=== PATIENT | female | born 1960 ===

== ENCOUNTER 2018-08-02 06:45 | Day surgery (SDC) | payer OTHER ==
[2018-08-01 13:20] VITALS: BMI 29.7
[~2018-08-02 06:45] MED LIST: HYDROmorphone 0.5 MG/0.5 ML SYRINGE IVP PRN; LACTATED RINGERS 1,000 ML IV SCH; MIDAZOLAM (PF) 2 MG/2 ML VIAL IV PRN; ONDANSETRON 4 MG/2 ML VIAL IVP ONE; Pre Op ABX Message 1 EACH MISC MISCELLANE ONE
[2018-08-02] MEDS ORDERED: DEXAMETHASONE SOD PHOSPHATE 10 MG/ML 1 ML VIAL IV ONE (07:09)
[2018-08-02] MEDS ORDERED: fentaNYL (PF) 50 MCG/ML 2 ML AMP IV ONE (07:13)
[2018-08-02] MEDS ORDERED: MIDAZOLAM (PF) 2 MG/2 ML VIAL IV ONE (07:13)
--- NOTE | 2018-08-02 07:28 | P.ONQ ---
Anesthesiology Proc Note - PNB - Peripheral Nerve Block Performed Right Interscalene Single Time Out Performed: Yes (0714) Procedure Start Time: 07:14 Procedure Stop Time: :18 Indication: Acute Post-Operative Pain, Dx/Pain Location (Right Shoulder Pain), Requested by physician Sedation Type: Sedate with meaningful contact maintained Preparation: Sterile Prep Position: Supine Catheter: None Needle Types: On-Q Needle Size: 50mm (2") Needle Gauge: 21 Technique: Ultrasound Injectate: Other (see comment) (15ml 0.5% Ropivacaine + 5ml 2% Lidocaine with 1:200,000 epi + 4mg Dexamethasone) Blood Aspirated: No Pain Paresthesia on Injection Noted: No Resistance on Injection: Normal Events: Uneventful and Well Tolerated
[2018-08-02] MEDS ORDERED: LIDOCAINE 1% INJ 10MG/ML (20 ML MDV) ONE (08:16)
[2018-08-02] MEDS ORDERED: MIDAZOLAM 2 MG/2 ML VIAL ONE (08:16)
[2018-08-02] MEDS ORDERED: fentaNYL (PF) 50 MCG/ML 2 ML AMP ONE (08:16)
[2018-08-02] MEDS ORDERED: DEXAMETHASONE SOD PHOS (MDV) 100 MG/10 ML VIAL ONE (08:16)
[2018-08-02] MEDS ORDERED: SUCCINYLCHOLINE CHLORIDE 100 MG/5 ML SYR IV ONE (08:16)
[2018-08-02] MEDS ORDERED: ceFAZolin 1,000 MG VIAL ONE (08:16)
[2018-08-02] MEDS ORDERED: PROPOFOL 10 MG/ML 20 ML VIAL IV ONE (08:16)
[2018-08-02] MEDS ORDERED: LIDOCAINE 2%-EPI 1:100,000 20 ML VIAL ONE (08:16)
[2018-08-02] MEDS ORDERED: PHENYLEPHRINE-0.9% NACL SYG 1 MG/10 ML SYRINGE ONE (08:16)
[2018-08-02] MEDS ORDERED: ROPIVACAINE 5 MG/ML 30 ML VIAL ONE (08:16)
[2018-08-02] MEDS ORDERED: EPINEPHrine 4 MG in SODIUM CHLORIDE 0.9% IRRIGATIO 3,000 ML IRRIGATION ONE ×8 (08:52)
[2018-08-02] MEDS ORDERED: LACTATED RINGERS 1,000 ML IV ONE (09:19)
--- NOTE | 2018-08-02 09:45 | P.OP ---
Date of Procedure: 08/02/18 Procedure(s) Performed: PREOPERATIVE DIAGNOSES: 1. Right shoulder rotator cuff tear. 2. Chronic impingement syndrome. 3. Acromioclavicular osteoarthritis. 4. Superior labral degenerative tear. POSTOPERATIVE DIAGNOSES: 1. Right shoulder rotator cuff tear (supraspinatus, 1 cm). 2. Chronic impingement syndrome. 3. Acromioclavicular osteoarthritis. 4. Labral degenerative tear, superior. 5. Adhesive capsulitis, mild. PROCEDURES PERFORMED: 1. Right shoulder arthroscopy with rotator cuff repair 2. Arthroscopic partial distal clavicle excision 3. Arthroscopic debridement superior labral tear 4. Arthroscopic subacromial decompression 5. Arthroscopic partial synovectomy 6. Arthroscopic lysis of adhesions with manipulation ANESTHESIA: General. ESTIMATED BLOOD LOSS: Less than 25 mL TOURNIQUET: None ASSISTANT MANAGER TRAINEE: Praveena Londono PA-C (Assistance with: patient positioning, camera operation, retraction, fixation, closure, dressing) COMPLICATIONS: None. DISPOSITION: To postanesthesia care unit INDICATIONS: Latia is a 57 year old female with a history of rotator cuff diff iculties. MRI was suspicious for a tear, and the patient wishes to have it repaired. I have examined the patient in the office and proposed rotator cuff repair via an arthroscopic or mini-open approach, as well as other procedures to optimize the shoulder and outcome, such as decompression of spurs and debridement of loose or degenerated tissue. I have explained the risks of this surgery as being inclusive of, but not limited to: bleeding, infection, scarring, discomfort, blood vessel and/or nerve damage, need for further surgery, stiffness, persistence or worsening of problems, , and other risks. The consent form has been completed and signed. PROCEDURE: Appropriate consent was obtained from the patient. The patient was taken to the operating room and placed in the supine position. General anesthesia was initiated and after confirmation of adequate anesthesia, the patients right shoulder was examined. Initial range of motion showed flexion to 120, abduction to 120, external rotation to 50 and internal rotation to 50. Gentle manipulation was performed using Codmans paradox maneuver such that range of motion was improved to 170 flexion, 170 abduction, 75 external rotation and 75 internal rotation. The shoulder was stable. Next, the patient was rotated into the lateral decubitus position and stabilized to the table with a caraballo bag and padded straps. Care was taken to make sure that all pressure points were adequately padded. Bear-hugger was used along with bilateral leg sequential compression devices. Prepping and draping was completed in the usual aseptic fashion using ChloraPrep. The patient received intravenous antibiotics prior to incision. The shoulder was suspended from traction with 15 lbs. of weight in a position of 45 degrees abduction. Landmarks were outlined with a skin marking pen. Time out was called, confirming patient name, side, procedure, availability of equipment, and administration of antibiotics. A spinal needle was inserted into the glenohumeral joint and fluid was administered to distend the joint. Some pressure was noted after 100 mL was administered. A posterior portal was created using an 11 blade and the arth roscopic canula, over a dull trocar, was carefully inserted into the joint. Arthroscopy then commenced. An anterior portal was inserted in the rotator interval area using inside-out technique. Biceps tendon was normal. Infraspinatus, subscapularis, and teres minor attachments were normal. Hyaline cartilage of the glenoid and humeral head showed degenerative changes typical for age. Supraspinatus attachment showed a 1 cm tear which was full thickness. No loose bodies were noted in the joint. Superior labrum showed some degenerative tearing but was well-attached. Negative peel back sign. There was also evidence of minor degenerative labral tearing in the inferior area. Loose fibers of labrum in this area were debrided away back to stable labrum. Synovitis was noted superior to the superior labrum and within the rotator interval. This was debrided and removed where the capsule appeared inflamed, using an arthroscopic shaver. Attention was then directed to the subacromial space. The camera and instruments were redirected into the subacromial space and bursoscopy was performed. The patients bursa was inflamed and thickened, indicating chronic bursitis. A lateral portal was created using outside-in technique. The supraspinatus tendon was examined particularly closely. There was an approximately 1 cm full thickness tear. The loose fibers of the tear were debrided back to stable tissue and the defect in the tendon was repaired arthroscopically after careful preparation of the supraspinatus footprint with trenton and rasp to create a good bleeding surface of bone, see below. The undersurface of the acromion had frictional changes consistent with impingement syndrome. The underside of the acromion anteriorly was cleared of soft tissue using an arthroscopic radiofrequency ablator. Care was taken while using the ablator not to exceed 40 degrees Centigrade within the bursa. The frictional changes of the rotator cuff matched exactly the location of the rotator cuff tear in the critical zone. A formal subacromial decompression was performed using a trenton. Approximately 5 mm of material was removed from the anterior-inferior corner of the acromion. This resection was beveled upwards laterally, and carried to the AC joint. The AC joint appeared arthritic with inferior spurring. This spurring was removed with a trenton, co-planing the resection with the acromial resection. The rotator cuff tear was then repaired as follows. The footprint of the supraspinatus tendon was prepared as noted above. A reverse mattress suture using Fiber Tape from [employer] was deployed into the torn supraspinatus edge using a scorpion suture passer. A 4.75 mm Swivelock anchor was then deployed at the greater tuberosity and the suture tension was adjusted so that there was complete reduction and coverage of the footprint. Suture tails were then cut. The holding suture of the anchor was then utilized with the scorpion into adjacent tissue and tied down. It was noted that there was complete closure of the cuff defect. The repair was stable. Subsequently, 4-0 Monocryl was used to close the portal holes. Steri-strips were applied as well as sterile dressing. The shoulder was then placed into a sling and the patient was transferred to recovery room in stable condition. Sponge and needle counts were correct.
[2018-08-02 09:58] VITALS: TEMP 96.5
[2018-08-02 10:04] VITALS: RESP 18
[2018-08-02 11:55] VITALS: BP 125/79; PULSE 85
== END 2018-08-02 12:44 | disposition home or self-care (01) ==
LOC: OR 06:45
PROVIDERS: ATTEND Orthopaedic Surgery
DX: M75.121 Complete rotator cuff tear or rupture of right shoulder, not specified as traumatic (principal); M54.12 Radiculopathy, cervical region; M19.011 Primary osteoarthritis, right shoulder; M75.41 Impingement syndrome of right shoulder; M75.01 Adhesive capsulitis of right shoulder; I10 Essential (primary) hypertension; M24.111 Other articular cartilage disorders, right shoulder; M65.811 Other synovitis and tenosynovitis, right shoulder; M75.51 Bursitis of right shoulder; Z79.899 Other long term (current) drug therapy; Z87.891 Personal history of nicotine dependence; Z88.6 Allergy status to analgesic agent; Z79.891 Long term (current) use of opiate analgesic; Z79.1 Long term (current) use of non-steroidal anti-inflammatories (NSAID)
CPT/HCPCS: 29827; 29826; 64415; C1713 ×2; C1894; J0171; J2250 ×2; J1100 ×2; J2405; J0690; J0694; J2001; J3010; J2795; J2370; J0330; J2704

== ENCOUNTER → 2021-11-03 | Outpatient (CLI) | payer OTHER ==
[2021-11-03 10:51] VITALS: BP 156/92; PULSE 80; RESP 18; TEMP 97.6
--- NOTE | 2021-11-03 11:00 | P.PAINCN ---
History of Present Illness - Reason for Consult Consult date: 11/03/21 - History of Present Illness This is a 60 years old female with a chronic history of severe neck pain with radiation to the upper extremity bilaterally but is more prominent on the right side, started May 2021, patient reported that the pain is constant, is with any activity interference with the quality of life associated with numbness and tingling sensation, she tried physical therapy without any benefit she tried medication without any benefit and she tried TENS unit and she continued to have pain she is currently on Abell ,NSAID , she continued to have pain, intensity of the pain interfering with her activity of daily livings, she denies any weakness for extremity she denies any fever or night sweats, denies any change in the bowel movement or urination Past Medical History Past Medical History: Deep Vein Thrombosis (DVT), Hypertension, Musculoskeletal Disorder, Seizure Disorder Additional Past Medical History / Comment(s): Dvt in leg 2006, varicose veins, ?few seizures several years ago related to taking herbal supplement History of Any Multi-Drug Resistant Organisms: None Reported Past Surgical History: Orthopedic Surgery, Tonsillectomy Additional Past Surgical History / Comment(s): ORIF right ankle Past Anesthesia/Blood Transfusion Reactions: No Reported Reaction Smoking Status: Former smoker - Past Family History Mother Family Medical History: Deep Vein Thrombosis (DVT) Medications and Allergies Home Medications Medication Instructions Recorded Confirmed Type Cholecalciferol (Vitamin D3) 1,000 unit PO DAILY 08/01/18 08/02/18 History [Vitamin D3] [place]-3 Fatty Acids/Fish Oil [Fish 1 each PO DAILY 08/01/18 08/02/18 History Oil 1,000 mg Softgel] Piroxicam [Feldene] 20 mg PO DAILY PRN 08/01/18 08/02/18 History lisinopriL [Zestril] 10 mg PO DAILY 08/01/18 08/02/18 History traMADol HCL [Ultram] 50 mg PO Q4HR PRN 08/01/18 08/02/18 History HYDROcodone/APAP 10-325MG [Abell 1 - 2 tab PO Q4-6H PRN #50 tab 08/02/18 Rx 10-325] Sennosides-Docusate Sodium 1 tab PO BID #60 tablet 08/02/18 Rx [Senokot-S] hydrOXYzine pamoate [Vistaril] 25 mg PO Q4-6H #30 capsule 08/02/18 Rx Allergies Allergy/AdvReac Type Severity Reaction Status Date / Time ibuprofen AdvReac very Verified 08/02/18 06:54 emotional Influenza Virus Vaccines AdvReac large Verified 08/02/18 06:54 swelling @injection site naproxen [From Naprosyn] AdvReac Dyspnea Verified 08/02/18 06:54 Physical Exam Vitals: Vital Signs Temp Pulse Resp BP Pulse Ox 11/03/21 10:43 97.6 F 80 18 156/92 96 Intake and Output 11/02/21 11/03/21 11/03/21 22:59 06:59 14:59 Other: Weight 87.09 kg Physical Examinations : -Constitutiona : Cooperative , not in acute distress . -HEENT : nech : supple , no Lymphadenopathy , normal thyroid size . : eyes : no ptosis , no icterus, no photophobia . : ENT : normal of hearing , normal oropharynx , no Thrush . - Respiratory : Chest clear to auscultations Bilaterally , no wheezing , no Rhonchi . - Cardiovascula : regular rate and rhythem , S1 , S2 , no S3 , no S4. - Gastrointestina : abdomen soft no tenderness , bowel sounds , no organomegally . - Genitourinary : Defferred . - neurologic : Cranial nerve II to XII intact , no focal neurological deffecit . -psychatric : alert , oriented X 3 , appropriate affect , intact judgment and insight . -Lymphatic : no Lymphadenopathy . - musculoskeltal : Cervical Spine motor stregnth in the deltoid and biceps, normal right side , normal Left side motor stregnth biceps and the wrist extensors normal right side ,normal left side . motor stregnth in the triceps muscle . normal Right side , normal Left side deep tendon reflexes normal at the biceps , normal at Brachioradialis , normal at triceps. cervical facet loading test= Positive Bilaterally Spurling test= positive bilaterally. Neck distraction test= positive bilaterally. Arline sign= positive bilaterally. Lumber spine moter stegnth lower extremities ,thigh and legs 5/5 Right side , 5/5 Left side Results Comments: MRI of the cervical spine multilevel cervical bulging disc disease C4 5 C5 6 C6 7 and foraminal narrowing and multilevel facet joint arthropathy Assessment and Plan Plan: Assessment and plan=1-cervical radiculopathy. 2-cervical degenerative disc disease. 3-cervical foraminal stenosis. 4-cervical spondylosis. she could benefit from cervical epidural steroid injection at C6 7 levels. Time with Patient: Greater than 30 PQRS Measure Charge Sheet Measure #130: Documentation of Current Meds in Medical Chart: Patient's medicat ions documented in chart Measure #226: Tobacco Use: Screen & Cessation Intervention: Pt not a tobacco user Measure #111: Pneumonia Vaccination: Pneumococcal vaccine NOT administered or previously given Measure #47: Advance Care Plan: Advance care planning discussed & documented, pt chose/unable to give Measure #412: Opioid Treatment Agreement: No documentation of signed opioid treatment agreement Measure #408: Opioid Therapy Follow-up Evaluation: Patient had NO f/u eval minimum every 3 months during opioid therapy Measure #317: Preventitive Care & Scrn High Bld Press & F/U: Pre-hypertensive or hypertensive BP documented, pt will f/u with PCP Measure #128: Body Mass Index (BMI) Screening & Follow-up: BMI documented ABOVE normal parameters - f/u documented Measure #131: Pain Assessment & Follow-up: Pain positive & plan documented, Follow-up scheduled Measure #431: Unhealthy Alcohol Use Preventative Care & Scrn: Patient not identified as an unhealthy alcohol user Mode of Arrival: Ambulatory - Pain Location Lower Neck Non-Pharmacological Interventions: Massage, Physical Therapy, TENS Unit Pharmacological Interventions: Topical Medication PQRS Narrative: Smoking Status Former smoker Blood Pressure 156/92 Pain Intensity [Lower Neck] 3 Scale Used Numeric (1 - 10) Hx Alcohol Use (MH) Yes Home Medications: Ambulatory Orders Cholecalciferol (Vitamin D3) [Vitamin D3] 1,000 unit PO DAILY 08/01/18 [place]-3 Fatty Acids/Fish Oil [Fish Oil 1,000 mg Softgel] 1 each PO DAILY 08/01/18 Piroxicam [Feldene] 20 mg PO DAILY PRN 08/01/18 lisinopriL [Zestril] 10 mg PO DAILY 08/01/18 traMADol HCL [Ultram] 50 mg PO Q4HR PRN 08/01/18 HYDROcodone/APAP 10-325MG [Abell 10-325] 1 - 2 tab PO Q4-6H PRN #50 tab 08/02/18 Sennosides-Docusate Sodium [Senokot-S] 1 tab PO BID #60 tablet 08/02/18 hydrOXYzine pamoate [Vistaril] 25 mg PO Q4-6H #30 capsule 08/02/18
== END ==
LOC: PNWHC3 10:15
PROVIDERS: ATTEND Specialist
DX: M50.10 Cervical disc disorder with radiculopathy, unspecified cervical region (principal); M47.22 Other spondylosis with radiculopathy, cervical region; M48.02 Spinal stenosis, cervical region; Z86.718 Personal history of other venous thrombosis and embolism; I10 Essential (primary) hypertension; G40.909 Epilepsy, unspecified, not intractable, without status epilepticus; Z87.891 Personal history of nicotine dependence; Z79.899 Other long term (current) drug therapy; Z88.7 Allergy status to serum and vaccine; Z88.6 Allergy status to analgesic agent
CPT/HCPCS: 99211

== ENCOUNTER 2021-12-15 11:38 | Day surgery (SDC) | payer OTHER ==
[2021-12-15] MEDS ORDERED: LACTATED RINGERS 1,000 ML IV SCH (11:55)
[2021-12-15] MEDS ORDERED: LIDOCAINE 1% (10MG/ML) FOR IV START INTRADERMA PRN (11:55)
[2021-12-15 12:13] VITALS: TEMP 97.3
[2021-12-15] MEDS ORDERED: LIDOCAINE 1% (10MG/ML) FOR IV START INTRADERMA ONE (12:13)
[2021-12-15] MEDS ORDERED: IOPAMIDOL M200 10 ML VIAL ONE (12:49)
[2021-12-15] MEDS ORDERED: fentaNYL (PF) 50 MCG/ML 2 ML AMP ONE (12:49)
[2021-12-15] MEDS ORDERED: DEXAMETHASONE SOD PHOSPHATE 10 MG/ML 1 ML VIAL ONE (12:49)
[2021-12-15] MEDS ORDERED: MIDAZOLAM 2 MG/2 ML VIAL ONE (12:49)
--- NOTE | 2021-12-15 13:03 | P.PCN ---
Date of Procedure: 12/15/21 Procedure(s) Performed: . PROCEDURE 1. Cervical epidural steroid injection under fluoroscopic guidance, C6-7 (fluoroscopy images available in the radiology department ) 2. Cervical epidurogram. PREOPERATIVE DIAGNOSIS: 1- Cervical Degenerative Disc Diseases 2- Cervical radiculopathy., 3-cervical spondylosis with cervical Facet arthropathy without myelopathy.4-cervical spinal stenosis POSTOPERATIVE DIAGNOSIS: : 1- Cervical Degenerative Disc Diseases , 2- Cervical radiculopathy. 3-,cervical spondylosis with cervical Facet arthropathy without myelopathy. 4-cervical spinal stenosis ANESTHESIA: moderate sedation, with Versed 2 mg and Fentanyl 100 mcg. Sedation start time : 1252 Sedation end time : 1259 EBL 0 PROCEDURE INDICATION: The patient with neck pain and radiculitis unresponsive to conservative treatment consents for procedure. PROCEDURE DESCRIPTION / TECHNIQUE: The patient was seen and identified in the preoperative area. Risks, benefits, complications, including but not limited to infections ,bleeding , allergic reactions to the medications ,and not complete pain releife, and alternatives were discussed with the patient, the patient agreed to proceed with the procedure and signed the consent. Patient was taken to the OR and time out was completed. The patient was placed in the prone position on the procedure table. A pillow was placed under the patients chest to increase the cervical interlaminar space. The cervical area was prepped and draped in the usual sterile fashion. Vital signs were closely monitored during the procedure. Conscious sedation was used during the procedure to decrease patients anxiety. Using anterior-posterior fluoroscopy, the C6-7 interlaminar space was identified and the skin over this site was marked and then infiltrated with 1% lidocaine subcutaneously. Subsequently, a 20-gauge 3-1/2-inch Tuohy epidural needle was inserted and advanced toward the epidural space by means of the ``hanging-drop technique and guided by AP and lateral fluoroscopy. The correct needle position in the epidural space was verified with the injection of 2 mL of the water soluble contrast dye Isovue-200 and observing an excellent epidurogram with the epidural spread of the dye, after negative aspiration for blood and CSF and in the absence of paresthesias. then, mixture containing 20 mg Dexamethasone and 2 ml of preservative-free normal saline injected and a washout of epidurogram was seen. Needle was withdrawn intact, skin was cleansed, and bandages were applied. Complications= none. Disposition= patient was placed in supine position and transferred to the recovery room area in stable condition and there was no evidence of upper or lower extremity motor or sensory deficit after the procedure patient was discharged from recovery room after discharge criteria met and home discharge instructions was given by the staff and patient will follow with the pain clinic in 2-4 weeks
[2021-12-15 13:07] VITALS: RESP 18
--- NOTE | 2021-12-15 13:21 | FL ---
EXAMINATION TYPE: FL guided pain mgmt statistic DATE OF EXAM: 12/15/2021 CLINICAL HISTORY: Neck pain. TECHNIQUE: Fluoroscopy. COMPARISON: None. FINDINGS: Fluoroscopic guidance was provided during pain relief procedure performed by Dr. Escamilla . A total of 2 seconds of fluoroscopic time was utilized during the procedure and two spot images ar e acquired. Images acquired shows needle localization at C6 level. IMPRESSION: As Above.
[2021-12-15 13:24] VITALS: BP 121/74; PULSE 65
== END 2021-12-15 13:49 | disposition home or self-care (01) ==
LOC: ORPAIN 11:38
PROVIDERS: ATTEND Specialist
DX: M50.123 Cervical disc disorder at C6-C7 level with radiculopathy (principal); M48.02 Spinal stenosis, cervical region; M47.22 Other spondylosis with radiculopathy, cervical region
CPT/HCPCS: 62321; J2250; J1100; J3010; Q9966

== ENCOUNTER 2022-02-09 11:30 | Day surgery (SDC) | payer OTHER ==
[~2022-02-09 11:30] MED LIST changes: -HYDROmorphone 0.5 MG/0.5 ML SYRINGE IVP PRN; -MIDAZOLAM (PF) 2 MG/2 ML VIAL IV PRN; -ONDANSETRON 4 MG/2 ML VIAL IVP ONE; -Pre Op ABX Message 1 EACH MISC MISCELLANE ONE
[2022-02-09] MEDS ORDERED: LACTATED RINGERS 1,000 ML IV SCH (11:43)
[2022-02-09] MEDS ORDERED: LIDOCAINE 1% (10MG/ML) FOR IV START INTRADERMA PRN (11:43)
[2022-02-09 11:51] VITALS: TEMP 97.5
[2022-02-09] MEDS ORDERED: IOPAMIDOL M200 10 ML VIAL ONE (12:40)
[2022-02-09] MEDS ORDERED: MIDAZOLAM 2 MG/2 ML VIAL ONE (12:40)
[2022-02-09] MEDS ORDERED: fentaNYL (PF) 50 MCG/ML 2 ML AMP ONE (12:40)
[2022-02-09] MEDS ORDERED: DEXAMETHASONE SOD PHOSPHATE 10 MG/ML 1 ML VIAL ONE (12:40)
--- NOTE | 2022-02-09 12:54 | P.PCN ---
Date of Procedure: 02/09/22 Description of Procedure: Pre- and Post-operative Diagnosis: Cervical radiculopathy Procedure: C6-C7 Inter-Laminar Cervical Epidural Steroid Injection under biplanar fluoroscopy Surgeon: Dimitri Albert Anesthesia: Local: 1% Lidocaine, IV sedation : Versed 2 mg, and fentanyl 100 g. Sedation supervision start time : 1243 sedation Supervision end time: 1251 Complications: None. Estimated blood loss: None Specimens removed: None Fluoroscopic image: saved to electronic medical records. Indications for Procedure: The patient has been suffering from neck pain and pain radiating to the upper extremity . Inadequate pain control with pharmacologic regimen. An inter-laminar approach cervical epidural steroid injection was scheduled for the patient. Procedure and Findings: The patient was seen and examined in the holding area. The written informed consent was obtained after explaining the risks, benefits, alternatives of the procedure to the patient. The patient was brought to the procedure room and was placed in the prone position on the operating table. A pillow was placed under the upper chest. Standard anesthesia monitoring was done through out the procedure. Timeout was completed. The skin preparation was done with ChloraPrep 2 and draping was done in usual sterile fashion. Sterile technique was observed throughout the procedure. Under fluoroscopic guidance, the C6-C7 inter-laminar space was identified. 3 ml of 1% Lidocaine was injected with a 25 gauge needle to achieve adequate local anesthesia of the skin and subcutaneous tissue. A 20 gauge, 3.5 inch Tuohy type epidural needle was placed and gradually advanced up to the epidural space using loss of resistance technique and fluoroscopic guidance. Lateral, oblique fluoroscopic views confirm the needle position. No paresthesia was noted. A negative aspiration was confirmed and then 1 ml of Isovue-200 was injected. A good dye spread was seen in the epidural space and it was negative for any intrathecal, intraneural or intravascular spread. A total of 5 ml solution containing 10 mg Dexamethasone, and 4 ml preservative-free Normal Saline was injected slowly with intermittent aspiration. The needle was removed intact, area was cleaned and bandage was applied. Disposition : The patient tolerated the procedure very well. The patient was transferred to the recovery room and remained stable until discharged home. The patient was given detailed discharge instructions for bleeding, infection, increased pain at the injection site, and was advised to seek immediate medical attention should significant side effects develop. The patient will be followed up with our Pain Clinic within 4 weeks for follow-up visit.
[2022-02-09] MEDS ORDERED: LACTATED RINGERS 1,000 ML IV ONE (13:02)
[2022-02-09 13:10] VITALS: BP 106/62; PULSE 73; RESP 15
--- NOTE | 2022-02-09 13:16 | FL ---
Intraoperative/procedural fluoroscopic services were provided for cervical epidural injection. Total fluoroscopy time is 6 seconds with a total of 2 submitted images to PACS. Please see the operative no te for further details.
== END 2022-02-09 13:24 | disposition home or self-care (01) ==
LOC: ORPAIN 11:30
DX: M50.123 Cervical disc disorder at C6-C7 level with radiculopathy (principal); I10 Essential (primary) hypertension; Z88.6 Allergy status to analgesic agent; Z88.7 Allergy status to serum and vaccine; Z79.899 Other long term (current) drug therapy; Z98.890 Other specified postprocedural states
CPT/HCPCS: 62321; J2250; J1100; J3010; Q9966

== ENCOUNTER → 2023-10-23 | Outpatient (CLI) | payer OTHER ==
[2023-10-24 02:09] LABS: Basophils # (A) 0.03 X 10*3/uL (0.00-0.10); Basophils % (A) 0.3 %; Eosinophils # (A) 0.26 X 10*3/uL (0.04-0.35); Eosinophils % (A) 2.9 %; HGB 12.6 g/dL (12.0-15.0); Lymphocytes # (A) 2.32 X 10*3/uL (0.90-5.00); Lymphocytes % (A) 25.9 %; MCH 29.2 pg (27.0-32.0); MCHC 32.3 g/dL (32.0-37.0); MCV 90.5 FL (80.0-97.0); Mean Platelet Volume 10.7 FL (9.5-12.2); Monocytes # (A) 0.65 X 10*3/uL (0.20-1.00); Monocytes % (A) 7.3 %; NRBC Per 100 WBC 0 X 10*3/uL (0.00-0.01); Neutrophils # (A) 5.65 X 10*3/uL (1.80-7.70); Neutrophils % (A) 63.2 %; Platelet Count 339 X 10*3/uL (140-440); RBC 4.31 X 10*6/uL (4.10-5.20); RDW 14.8 % (11.5-14.5); WBC 8.95 X 10*3/uL (4.50-10.00)
[2023-10-24 02:26] LABS: Erythrocyte Sedimentation Rate 5 mm/Hr (0-30)
[2023-10-24 03:55] LABS: Gliadin AB IgA, Deaminated Negative (Negative); Gliadin AB IgA, Unit <0.5 U/mL; Gliadin AB IgG, Deaminated Negative (Negative); Gliadin AB IgG, Unit <0.4 U/mL
== END | disposition home or self-care (01) ==
LOC: LABWHC1 16:16
PROVIDERS: ATTEND Internal Medicine Gastroenterology
DX: K52.9 Noninfective gastroenteritis and colitis, unspecified (principal)
CPT/HCPCS: 36415; 83516; 85025; 85652; 86140